=== PATIENT | male | born 1970 | race Caucasian/White ===

== ENCOUNTER 2022-11-17 19:17 | Emergency (ER) | payer OTHER ==
[2022-11-17 19:25] VITALS: BMI 32.3
[2022-11-17] MEDS ORDERED: ACETAMINOPHEN 1000 MG/100 ML BAG IVPB ONE (21:35)
[2022-11-17] MEDS ORDERED: ACETAMINOPHEN INJECTION 100 ML IVPB ONE (21:47)
[2022-11-17 22:07] LABS: BASO % 1.1 % (0-2.0); EOS % 1.5 % (0-4.5); HEMATOCRIT 48.7 % (35.4-49); HEMOGLOBIN 16.4 GM/dL (11.7-16.9); LYMPH % 22.2 % (8-40); MCH 28.7 pg (25.7-33.7); MCHC 33.8 g/dl (32.0-35.9); MEAN CELL VOLUME 84.9 fl (80-96); MEAN PLT VOLUME 8.3 fl (7.5-11.1); NEUT % 67.2 % (42.8-82.8); PLATELET COUNT 250 10^3/uL (134-434); RBC 5.74 M/mm3 (4.00-5.60); RDW 13.7 % (11.9-15.9); WHITE BLOOD COUNT 14.9 K/mm3 (4.0-10.0)
[2022-11-17 22:14] LABS: INR 1.04 (0.83-1.09); PROTHROMBIN TIME (PATIENT) 12.1 SEC (9.7-13.0)
[2022-11-17 22:16] LABS: ACTIVATED PTT 33.4 SECONDS (25.2-36.5)
[2022-11-17 22:26] LABS: BLOOD UREA NITROGEN 17.8 mg/dL (7-18); CALCIUM 9.7 mg/dL (8.5-10.1); MAGNESIUM 2.4 mg/dL (1.8-2.4)
[2022-11-17 22:27] LABS: ALBUMIN 4.3 g/dl (3.4-5.0)
[2022-11-17 22:30] LABS: CREATININE 1.3 mg/dL (0.55-1.3)
[2022-11-17 22:31] LABS: BILIRUBIN,TOTAL 0.6 mg/dL (0.2-1); TOT PROT 7.4 g/dl (6.4-8.2)
[2022-11-18 00:02] LABS: EPI CELLS 3 /uL (0-25.1); HYALINE CASTS 0 /uL (0-3.1); URINE APPEARANCE CLOUDY; URINE BACTERIA 0 /uL (0-1359); URINE BILIRUBIN NEGATIVE (NEGATIVE); URINE COLOR DK YELLOW; URINE GLUCOSE (UA) NEGATIVE (NEGATIVE); URINE KETONE TRACE (NEGATIVE); URINE LEUK ESTERASE NEGATIVE (NEGATIVE); URINE NITRITE NEGATIVE (NEGATIVE); URINE PROTEIN TRACE (NEGATIVE); URINE RBC 4568 /uL (0-23.9); URINE WBC 28 /uL (0-25.8)
[2022-11-18 02:18] VITALS: BP 122/83; PULSE 93; RESP 16; TEMP 97.6
== END 2022-11-18 03:01 | disposition home or self-care (01) ==
LOC: JER 19:17
PROC: 3E0333Z Introduction of Anti-inflammatory into Peripheral Vein, Percutaneous Approach (ICD-10-PCS; principal; 2022-11-17)
DX: N20.0 Calculus of kidney (principal); K80.20 Calculus of gallbladder without cholecystitis without obstruction
CPT/HCPCS: 0241U-QW; 36415; 71046-TC-FY; 74177-TC; 76705-TC; 80053; 81003; 83690; 83735; 85025; 85610; 85730; 99285-25; Q9967

== ENCOUNTER 2024-07-17 11:17 | Inpatient (IN) | payer OTHER ==
[2024-07-17] MEDS: LACTATED RINGERS SOLUTION 1000 ML INFUS.BAG IV ONE ×2 (12:40→13:56)
[2024-07-17 12:49] LABS: HEMATOCRIT 56.3 % (35.4-49); HEMOGLOBIN 17.5 GM/dL (11.7-16.9); MCH 28.3 pg (25.7-33.7); MCHC 31.1 g/dl (32.0-35.9); MEAN CELL VOLUME 91.2 fl (80-96); MEAN PLT VOLUME 10.8 fl (7.5-11.1); PLATELET COUNT 319 10^3/uL (134-434); RBC 6.17 M/mm3 (4.00-5.60); RDW 13.9 % (11.9-15.9); WHITE BLOOD COUNT 20.1 K/mm3 (4.0-10.0)
[2024-07-17] MEDS ORDERED: ACETAMINOPHEN INJECTION 100 ML ONE (13:01)
[2024-07-17] MEDS: ACETAMINOPHEN 1000 MG/100 ML BAG IVPB ONE (13:08)
[2024-07-17 13:11] LABS: CHLORIDE 90 mmol/L (98-107); POTASSIUM 5.1 mmol/L (3.5-5.1)
[2024-07-17 13:17] LABS: ANION GAP 21 mmol/L (4-13)
[2024-07-17 13:19] LABS: CREATININE 2.5 mg/dL (0.55-1.3); PHOSPHOROUS 2.3 mg/dL (2.5-4.9)
[2024-07-17 13:21] LABS: PH,URINE 5.5 (5.0-8.0); URINE APPEARANCE CLEAR; URINE BILIRUBIN NEGATIVE (NEGATIVE); URINE COLOR YELLOW; URINE GLUCOSE (UA) 3+ (NEGATIVE); URINE KETONE 1+ (NEGATIVE); URINE LEUK ESTERASE NEGATIVE (NEGATIVE); URINE NITRITE NEGATIVE (NEGATIVE); URINE PROTEIN NEGATIVE (NEGATIVE); URINE UROBILINOGEN 0.2 mg/dL (0.2-1.0)
[2024-07-17 13:38] LABS: ANISOCYTOSIS 1+; MACROCYTOSIS 0
[2024-07-17 14:05] LABS: ALBUMIN 4.5 g/dl (3.4-5.0); ALK PHOS 148 U/L (45-117); CALCIUM 10.7 mg/dL (8.5-10.1); CO2 16 mmol/L (21-32); GLUCOSE,RANDOM 1135 mg/dL (74-106); MAGNESIUM 3.4 mg/dL (1.8-2.4); SGOT/AST 22 U/L (15-37); SGPT/ALT 58 U/L (13-61); SODIUM 127 mmol/L (136-145); TOT PROT 8.1 g/dl (6.4-8.2)
[2024-07-17 14:08] LABS: VENOUS PCO2 27.4 mmHg (38-52); VENOUS PH 7.418 (7.310-7.410)
[2024-07-17 14:12] LABS: HIV INTERPRETATION NEGATIVE (NEGATIVE)
[2024-07-17] MEDS: INSULIN REGULAR 100 UNITS in SODIUM CHLORIDE 99 ML IVPB SCH (14:21)
[2024-07-17] MEDS: ENOXAPARIN NA (PORCINE) 40 MG/0.4 ML DISP.SYRIN SQ SCH (17:29)
[2024-07-17 17:47] LABS: CHLORIDE 104 mmol/L (98-107); POTASSIUM 3.2 mmol/L (3.5-5.1); SODIUM 141 mmol/L (136-145)
[2024-07-17 17:49] LABS: CALCIUM 10.9 mg/dL (8.5-10.1)
[2024-07-17 17:50] LABS: ALBUMIN 4.2 g/dl (3.4-5.0); ANION GAP 18 mmol/L (4-13); BLOOD UREA NITROGEN 38.6 mg/dL (7-18); CO2 19 mmol/L (21-32); MAGNESIUM 3.1 mg/dL (1.8-2.4)
[2024-07-17 17:53] LABS: PHOSPHOROUS 1.4 mg/dL (2.5-4.9); SGOT/AST 18 U/L (15-37); SGPT/ALT 56 U/L (13-61)
[2024-07-17 17:54] LABS: BILIRUBIN,TOTAL 1.7 mg/dL (0.2-1); TOT PROT 7.8 g/dl (6.4-8.2)
[2024-07-17 17:56] LABS: ALK PHOS 136 U/L (45-117)
[2024-07-17 17:57] LABS: GLUCOSE,RANDOM 612 mg/dL (74-106)
[2024-07-17 17:58] LABS: LACTIC ACID 3.1 mmol/L (0.4-2.0)
[2024-07-17 18:03] LABS: CREATININE 2.1 mg/dL (0.55-1.3)
[2024-07-17] MEDS: KCL 10 MEQ IVPB 10 MEQ/100 ML INFUS.BAG IVPB SCH (18:20)
[2024-07-17] MEDS: POTASSIUM PHOSPHATE 30 MM in SODIUM CHLORIDE 250 ML IVPB ONE (19:02)
[2024-07-17] MEDS: CEFTRIAXONE 1 GM in DEXTROSE 5%-WATER - 50 ML IVPB SCH (21:43)
[2024-07-17] MEDS: LACTATED RINGERS SOLUTION 1,000 ML/1,000 ML INFUS.BAG IV SCH (21:55)
[2024-07-17 22:00] LABS: BASO % 0.3 % (0-2.0); EOS % 0.1 % (0-4.5); HEMATOCRIT 51.5 % (35.4-49); HEMOGLOBIN 16.8 GM/dL (11.7-16.9); LYMPH % 11.1 % (8-40); MCH 28.7 pg (25.7-33.7); MCHC 32.6 g/dl (32.0-35.9); MEAN PLT VOLUME 9.9 fl (7.5-11.1); MONO % 6.6 % (3.8-10.2); NEUT % 81.9 % (42.8-82.8); PLATELET COUNT 267 10^3/uL (134-434); RBC 5.86 M/mm3 (4.00-5.60); RDW 13.6 % (11.9-15.9); WHITE BLOOD COUNT 18.6 K/mm3 (4.0-10.0)
[2024-07-17 22:25] LABS: CHLORIDE 108 mmol/L (98-107); POTASSIUM 3.4 mmol/L (3.5-5.1); SODIUM 142 mmol/L (136-145)
[2024-07-17 22:26] LABS: CALCIUM 9.7 mg/dL (8.5-10.1)
[2024-07-17 22:27] LABS: ANION GAP 17 mmol/L (4-13); BLOOD UREA NITROGEN 46.1 mg/dL (7-18); CO2 18 mmol/L (21-32)
[2024-07-17 22:29] LABS: AMYLASE 33 U/L (25-115); GLUCOSE,RANDOM 440 mg/dL (74-106)
[2024-07-17 22:30] LABS: CREATININE 1.8 mg/dL (0.55-1.3)
[2024-07-17] MEDS: CHLORHEXIDINE GLUCONATE 4% CLEANSER FOR DECOLONIZATION TP SCH (23:09)
[2024-07-18] MEDS: MUPIROCIN 2% TOPICAL OINTMENT FOR DECOLONIZATION NS SCH (00:21)
[2024-07-18 01:44] LABS: CALCIUM 9.7 mg/dL (8.5-10.1)
[2024-07-18 01:45] LABS: ALBUMIN 3.6 g/dl (3.4-5.0); BLOOD UREA NITROGEN 42.5 mg/dL (7-18); MAGNESIUM 2.8 mg/dL (1.8-2.4)
[2024-07-18 01:48] LABS: CREATININE 1.8 mg/dL (0.55-1.3); PHOSPHOROUS 4.3 mg/dL (2.5-4.9)
[2024-07-18 01:49] LABS: BILIRUBIN,TOTAL 1.2 mg/dL (0.2-1); TOT PROT 6.8 g/dl (6.4-8.2)
[2024-07-18] MEDS: INSULIN (LEVEMIR) 100 UNITS/ML UNITS SQ SCH ×2 (03:17→21:43)
[2024-07-18] MEDS: INSULIN ASPART SLIDING SCALE (NOVOLOG) 1 VIAL SQ SCH ×2 (06:38→11:01)
[2024-07-18 08:10] LABS: BASO % 0.4 % (0-2.0); EOS % 0.2 % (0-4.5); HEMATOCRIT 51.5 % (35.4-49); HEMOGLOBIN 17.1 GM/dL (11.7-16.9); LYMPH % 11.3 % (8-40); MCH 28.8 pg (25.7-33.7); MCHC 33.2 g/dl (32.0-35.9); MEAN CELL VOLUME 86.7 fl (80-96); MEAN PLT VOLUME 10.4 fl (7.5-11.1); MONO % 6.3 % (3.8-10.2); NEUT % 81.8 % (42.8-82.8); PLATELET COUNT 247 10^3/uL (134-434); RBC 5.94 M/mm3 (4.00-5.60); RDW 13.6 % (11.9-15.9); WHITE BLOOD COUNT 18.2 K/mm3 (4.0-10.0)
[2024-07-18] MEDS: INSULIN (NOVOLOG) ASPART 100 UNITS/ML 10ML VIAL SQ ONE (09:05)
[2024-07-18 09:23] LABS: POTASSIUM 4.2 mmol/L (3.5-5.1)
[2024-07-18 09:25] LABS: ALBUMIN 3.6 g/dl (3.4-5.0); BLOOD UREA NITROGEN 40.6 mg/dL (7-18); CALCIUM 9.4 mg/dL (8.5-10.1); MAGNESIUM 2.4 mg/dL (1.8-2.4)
[2024-07-18 09:29] LABS: CREATININE 1.5 mg/dL (0.55-1.3); PHOSPHOROUS 3.8 mg/dL (2.5-4.9)
[2024-07-18 09:30] LABS: BILIRUBIN,TOTAL 1.3 mg/dL (0.2-1); TOT PROT 6.6 g/dl (6.4-8.2)
[2024-07-18] MEDS ORDERED: INSULIN (LEVEMIR) 100 UNITS/ML UNITS SQ SCH (09:48)
[2024-07-18] MEDS ORDERED: INSULIN REGULAR HUMAN 100 UNITS/ML *VIAL ONE (09:56)
[2024-07-18] MEDS: INSULIN REGULAR HUMAN 100 UNITS/ML *VIAL IVPUSH ONE (10:02)
[2024-07-18] MEDS: INSULIN (LEVEMIR) 100 UNITS/ML UNITS SQ ONE (10:02)
[2024-07-18] MEDS: ALPRAZolam 1 MG TABLET PO SCH (13:38)
[2024-07-18] MEDS ORDERED: ONDANSETRON 4 MG/2 ML VIAL IVPUSH PRN (18:25)
[2024-07-18] MEDS: SIMETHICONE 80 MG TAB.CHEW (FP) PO PRN (18:35)
[2024-07-18] MEDS: METOCLOPRAMIDE HCL INJECTION 10 MG/2 ML VIAL IVPUSH SCH (18:36)
[2024-07-18 22:02] LABS: POTASSIUM 3.8 mmol/L (3.5-5.1)
[2024-07-18 22:03] LABS: CALCIUM 9.2 mg/dL (8.5-10.1)
[2024-07-18 22:04] LABS: MAGNESIUM 2.2 mg/dL (1.8-2.4)
[2024-07-18 22:07] LABS: CREATININE 1.2 mg/dL (0.55-1.3); PHOSPHOROUS 2.6 mg/dL (2.5-4.9)
[2024-07-19 07:26] LABS: BASO % 0.4 % (0-2.0); EOS % 1.1 % (0-4.5); HEMOGLOBIN 15.6 GM/dL (11.7-16.9); LYMPH % 22.6 % (8-40); MCH 29.2 pg (25.7-33.7); MEAN CELL VOLUME 86.1 fl (80-96); MEAN PLT VOLUME 10.1 fl (7.5-11.1); NEUT % 67.9 % (42.8-82.8); PLATELET COUNT 199 10^3/uL (134-434); RBC 5.34 M/mm3 (4.00-5.60); RDW 13.5 % (11.9-15.9); WHITE BLOOD COUNT 10.9 K/mm3 (4.0-10.0)
[2024-07-19 07:43] LABS: POTASSIUM 3.6 mmol/L (3.5-5.1)
[2024-07-19 07:47] LABS: MAGNESIUM 2.4 mg/dL (1.8-2.4)
[2024-07-19 07:50] LABS: PHOSPHOROUS 3.7 mg/dL (2.5-4.9)
[2024-07-19 07:52] LABS: BILIRUBIN,TOTAL 1.3 mg/dL (0.2-1); TOT PROT 5.5 g/dl (6.4-8.2)
[2024-07-19] MEDS: TAMSULOSIN HCL 0.4 MG CAP PO SCH (09:03)
[2024-07-19] MEDS: LOSARTAN POTASSIUM 50 MG TABLET PO SCH (09:03)
[2024-07-19] MEDS: POLYETHYLENE GLYCOL (HEALTHYLAX) 3350 17 GM PACKET PO SCH ×2 (10:57→22:46)
[2024-07-19] MEDS ORDERED: POLYETHYLENE GLYCOL (HEALTHYLAX) 3350 17 GM PACKET PO SCH (11:15)
[2024-07-19] MEDS: NYSTATIN 500,000 UNITS/5 ML SUSPENSION PO ONE (11:46)
[2024-07-19] MEDS: BUDESONIDE/FORMETEROL FUMARATE 160/4.5 mcg INHALER IH PRN (13:46)
[2024-07-19] MEDS ORDERED: INSULIN (LEVEMIR) 100 UNITS/ML UNITS SQ SCH (14:17)
[2024-07-19 15:16] VITALS: BMI 29.0
[2024-07-19] MEDS: PANTOPRAZOLE SOD 40 MG SUSPENSION PACKET PO SCH (15:31)
[2024-07-19 16:13] LABS: BILIRUBIN,DIRECT 0.3 mg/dL (0.0-0.2)
[2024-07-19] MEDS ORDERED: SIMETHICONE 80 MG TAB.CHEW (FP) PO PRN (16:15)
[2024-07-19 16:40] LABS: PH,URINE 6.5 (5.0-8.0); URINE APPEARANCE CLEAR; URINE BILIRUBIN NEGATIVE (NEGATIVE); URINE COLOR YELLOW; URINE GLUCOSE (UA) 3+ (NEGATIVE); URINE KETONE 1+ (NEGATIVE); URINE LEUK ESTERASE NEGATIVE (NEGATIVE); URINE NITRITE NEGATIVE (NEGATIVE); URINE PROTEIN NEGATIVE (NEGATIVE)
[2024-07-19] MEDS: INSULIN ASPART SLIDING SCALE (NOVOLOG) 1 VIAL SQ SCH (17:09)
[2024-07-19] MEDS: INSULIN (NOVOLOG) ASPART 100 UNITS/ML 10ML VIAL SQ SCH (17:09)
[2024-07-19] MEDS ORDERED: SENNOSIDES 8.8 MG/5 ML SYRUP PO SCH (22:00)
[2024-07-19] MEDS ORDERED: CHLORHEXIDINE GLUCONATE 4% CLEANSER FOR DECOLONIZATION TP SCH (22:00)
[2024-07-19] MEDS ORDERED: MUPIROCIN 2% TOPICAL OINTMENT FOR DECOLONIZATION NS SCH (22:00)
[2024-07-19] MEDS: INSULIN (LEVEMIR) 100 UNITS/ML UNITS SQ SCH (22:42)
[2024-07-19] MEDS: SENNOSIDES 8.8 MG/5 ML SYRUP PO SCH (22:46)
[2024-07-19] MEDS: ALPRAZolam 0.25 MG TABLET PO SCH (22:46)
[2024-07-20 08:34] LABS: HEMATOCRIT 47.5 % (35.4-49); HEMOGLOBIN 15.6 GM/dL (11.7-16.9); MCH 29.1 pg (25.7-33.7); MCHC 32.9 g/dl (32.0-35.9); MEAN CELL VOLUME 88.5 fl (80-96); MEAN PLT VOLUME 9.9 fl (7.5-11.1); PLATELET COUNT 198 10^3/uL (134-434); RBC 5.37 M/mm3 (4.00-5.60); RDW 13.3 % (11.9-15.9); WHITE BLOOD COUNT 8.4 K/mm3 (4.0-10.0)
[2024-07-20 08:48] LABS: POTASSIUM 3.6 mmol/L (3.5-5.1)
[2024-07-20 08:50] LABS: ALBUMIN 3.3 g/dl (3.4-5.0)
[2024-07-20 08:51] LABS: BLOOD UREA NITROGEN 21.9 mg/dL (7-18); MAGNESIUM 2.4 mg/dL (1.8-2.4)
[2024-07-20 08:54] LABS: CREATININE 1.1 mg/dL (0.55-1.3)
[2024-07-20 08:55] LABS: BILIRUBIN,TOTAL 1.5 mg/dL (0.2-1); TOT PROT 6.1 g/dl (6.4-8.2)
[2024-07-20] MEDS ORDERED: PATIENT'S OWN MEDICATION (NON-FORMULARY) (Fluticasone Furoate [Arnuity Ellipta] 100 MCG Bl IH SCH (10:00)
[2024-07-20] MEDS ORDERED: PATIENT'S OWN MEDICATION (NON-FORMULARY) (Losartan Potassium 100 MG Tablet) PO SCH (10:00)
[2024-07-20] MEDS: ENOXAPARIN NA (PORCINE) 40 MG/0.4 ML DISP.SYRIN SQ SCH (10:29)
[2024-07-20] MEDS: LOSARTAN POTASSIUM 50 MG TABLET PO SCH (10:29)
[2024-07-20 15:09] VITALS: RESP 18
[2024-07-21 14:07] VITALS: BP 122/78; PULSE 114; TEMP 97.9
[2024-07-22] MEDS ORDERED: BUDESONIDE/FORMETEROL FUMARATE 160/4.5 mcg INHALER IH SCH (10:00)
== END 2024-07-21 15:12 | disposition home or self-care (01) | DRG 638 ==
LOC: JER 11:17 → JERBED 14:25 → JICU 15:13 → J7W 07-19 16:02
PROVIDERS: ADMIT Internal Medicine Pulmonary Disease; ATTEND Nurse Practitioner Family
DX: E11.00 Type 2 diabetes mellitus with hyperosmolarity without nonketotic hyperglycemic-hyperosmolar coma (NKHHC) (principal); B37.0 Candidal stomatitis; N17.9 Acute kidney failure, unspecified; E86.0 Dehydration; I10 Essential (primary) hypertension; F41.9 Anxiety disorder, unspecified; F79 Unspecified intellectual disabilities; K80.20 Calculus of gallbladder without cholecystitis without obstruction; J45.909 Unspecified asthma, uncomplicated; G80.9 Cerebral palsy, unspecified; M54.50 Low back pain, unspecified; Z88.0 Allergy status to penicillin; D72.829 Elevated white blood cell count, unspecified; K76.0 Fatty (change of) liver, not elsewhere classified
CPT/HCPCS: 0241U-QW; 36415; 71045-TC-FY; 74176-TC; 76775-TC; 80048; 80053; 81003; 82010; 82150; 82248; 82803; 82962; 83036; 83605; 83690; 83735; 84100; 84436; 84443; 84479; 84484; 85025; 85027; 85730; 86803; 87040; 87389; 93005; 93010; 97116-GP; 97161-GP; 99285-25; J0131